=== PATIENT | male | born 1975 | race American Indian/Alaskan Native ===

== ENCOUNTER 2022-07-03 10:37 | Emergency (ER) | payer BC ==
[2022-07-03] MEDS ORDERED: Phenazopyridine 95 MG Tab PO ONE (10:38)
[2022-07-03] MEDS ORDERED: Ciprofloxacin 500 MG Tab PO ONE (10:38)
[2022-07-03] MEDS ORDERED: cefTRIAXone 1 GM, Lidocaine 1% 2.1 ML IM ONE ×2 (11:51)
[2022-07-03] MEDS ORDERED: Ciprofloxacin 500 MG Tab ONE (12:00)
[2022-07-03] MEDS ORDERED: Phenazopyridine 95 MG Tab ONE (12:05)
== END 2022-07-03 12:17 | disposition home or self-care (01) ==
LOC: DL.ED 10:37
DX: N39.0 Urinary tract infection, site not specified (principal); I10 Essential (primary) hypertension; Z88.8 Allergy status to other drugs, medicaments and biological substances; Z86.16 Personal history of COVID-19
CPT/HCPCS: 81001; 87086; 87088; 87186; 99283; A9270-GY; J0696